=== PATIENT | male | born 1980 | race Caucasian/White ===

== ENCOUNTER 2023-09-18 19:21 | Emergency (ER) | payer BC ==
[2023-09-18 20:16] LABS: Absolute Lymphocytes (CBC) 0.6 K/uL (0.7-4.9); Hematocrit 45.7 % (39.6-49.0); Lymphocytes % 13.6 % (15.3-44.8); MCV 94.5 fL (80-100); MPV 8.9 fL (7.6-11.3); Platelets 102 thou/uL (152-406); RBC Red Blood Cell Count 4.84 M/uL (4.33-5.43)
[2023-09-18] MEDS ORDERED: PANTOPRAZOLE 40 MG INJ ONE (20:25)
[2023-09-18] MEDS ORDERED: LORazepam 2 MG/ML VIAL ONE (20:25)
[2023-09-18] MEDS ORDERED: THIAMINE 200 MG/2 ML INJ ONE (20:25)
[2023-09-18] MEDS ORDERED: ONDANSETRON 4 MG/2 ML VIAL ONE (20:25)
[2023-09-18 20:26] LABS: Protime INR 1.06
[2023-09-18] MEDS ORDERED: FAMOTIDINE 20 MG/2 ML VIAL IV ONE (20:26)
[2023-09-18] MEDS ORDERED: NA CHLORIDE 0.9% 1,000 ML ONE (20:26)
[2023-09-18] MEDS ORDERED: D5 0.9 NS 1,000 ML IV ONE (20:26)
[2023-09-18 20:38] LABS: ALT/SGPT 84 U/L (16-61); AST/SGOT 72 U/L (15-37); Alkaline Phosphatase 71 U/L (45-117); BUN Blood Urea Nitrogen 5 mg/dL (7-18); Bicarbonate 24 mEq/L (21-32); Bilirubin Direct 0.4 mg/dL (0-0.2); Bilirubin Indirect, Calculated 0.8 mg/dL (0.2-0.8); Bilirubin Total 1.2 mg/dL (0.2-1.0); Glomerular Filtration Rate 83 ml/min (=/>90); Glucose Level 119 mg/dL (74-106); Potassium 3.5 mEq/L (3.5-5.1); Protein, Total 8.5 g/dL (6.4-8.2); Sodium Level 135 mEq/L (136-145)
--- NOTE | 2023-09-18 22:39 | ER ---
Nurse's Notes [facility] Name: Lenin Ventura Age: 42 yrs Sex: Male : 1980 Arrival Date: 09/18/2023 Time: 19:21 Bed 8 Private MD: Diagnosis: Alcohol dependence with withdrawal, uncomplicated Presentation: 09/18 19:26 Chief complaint: Patient states: ETOH abuse over the last 20 years. i usually drink 1/2 lg3 of a 5th of liquor a day. stopped 2 days ago. im shaking, headache, chest pain, palpitations and vomiting. five gone through detox before but never this bad. Coronavirus screen: Client denies travel out of the [place] in the last 14 days. At this time, the client does not indicate any symptoms associated with coronavirus-19. Ebola Screen: No symptoms or risks identified at this time. Initial Sepsis Screen: Does the patient meet any 2 criteria? No. Patient's initial sepsis screen is negative. Does the patient have a suspected source of infection? No. Patient's initial sepsis screen is negative. Risk Assessment: Do you want to hurt yourself or someone else? Patient reports no desire to harm self or others. Onset of symptoms was September 16, 2023. 19:26 Method Of Arrival: Ambulatory lg3 19:26 Acuity: THAO 3 lg3 Triage Assessment: 19:29 General: Appears in no apparent distress. uncomfortable, Behavior is cooperative, lg3 anxious. Pain: Complains of pain in chest and back of head. EENT: No deficits noted. No signs and/or symptoms were reported regarding the EENT system. Neuro: Reza Agitation-Sedation Scale (RASS): +1 Restless Level of Consciousness is awake, alert, obeys commands, Oriented to person, place, time, situation. Cardiovascular: Reports chest pain, palpitations. Respiratory: No deficits noted. Airway is patent Respiratory effort is even, unlabored, Respiratory pattern is regular, symmetrical. GI: No deficits noted. Reports cramping, intolerance of fluids, intolerance of food, nausea, vomiting. : No deficits noted. No signs and/or symptoms were reported regarding the genitourinary system. Derm: No deficits noted. No signs and/or symptoms reported regarding the dermatologic system. Skin is intact, is healthy with good turgor, Skin is diaphoretic, Skin is normal, Skin temperature is warm. Musculoskeletal: No deficits noted. No signs and/or symptoms reported regarding the musculoskeletal system. Circulation, motion, and sensation intact. Range of motion: intact in all extremities. Historical: - Allergies: 19:29 No Known Allergies; lg3 - Home Meds: 19:29 None [Active]; lg3 - PMHx: 19:29 ETOH abuse; lg3 - PSHx: 19:29 None; lg3 - Immunization history:: Adult Immunizations up to date, Client reports having NOT received the Covid vaccine. Flu vaccine is not up to date. - Social history:: Smoking status: Patient reports the use of cigarette tobacco products, smokes one-half pack cigarettes per day, Patient uses alcohol, patient/guardian reports chronic longstanding heavy alcohol consumption. patient/guardian reports recent binge of alcohol consumption. - Family history:: not pertinent. Screenin:05 [facility] ED Fall Risk Assessment (Adult) History of falling in the last 3 months, km8 including since admission No falls in past 3 months (0 pts) Confusion or Disorientation No (0 pts) Intoxicated or Sedated No (0 pts) Impaired Gait No (0 pts) Mobility Assist Device Used No (0 pt) Altered Elimination No (0 pt) Score/Fall Risk Level 0 - 2 = Low Risk Oriented to surroundings, Maintained a safe environment, Educated pt \T\ family on fall prevention, incl call for assistance when getting out of bed, Assessed \T\ reinforced patient's understanding of fall precautions. Abuse screen: Denies threats or abuse. Denies injuries from another. Nutritional screening: No deficits noted. Tuberculosis screening: No symptoms or risk factors identified. 20:05 Clinical [place] Ari Withdrawal Assessment for Alcohol, revised (CIWA-Ar): km8 Nausea/Vomitin - No nausea or vomiting Headache: 0 - Not present Paroxysmal Sweats: 1 - Barely perceptible sweating, palms moist Anxiety: 4 - Moderately anxious, guarded Agitation: 0 - Normal actiivty Tremor: 4 - Moderate when client's hands extended Auditory Disturbances: 0 - Not present Visual Disturbances: 0 - Not present Tactile Disturbances: 1 - Very mild paresthesias Orientation and Clouding of Sensorium: 0 - Oriented and can do serial additions Total Score: 10 to 15: Mild Withdrawal. 21:43 Clinical [place] Ari Withdrawal Assessment for Alcohol, revised (CIWA-Ar): km8 Nausea/Vomitin - No nausea or vomiting Headache: 0 - Not present Paroxysmal Sweats: 0 - No sweats visible Anxiety: 0 - No anxiety, at ease Agitation: 0 - Normal actiivty Tremor: 1 - Not visible, but can be felt at fingertips Auditory Disturbances: 0 - Not present Visual Disturbances: 0 - Not present Tactile Disturbances: 1 - Very mild paresthesias Orientation and Clouding of Sensorium: 0 - Oriented and can do serial additions Total Score: < 10 Very mild withdrawal. Assessment: 20:05 General: Appears comfortable, Behavior is cooperative, appropriate for age, restless. km8 20:05 Pain: Denies pain. Neuro: Reza Agitation-Sedation Scale (RASS): +1 Restless Level km8 of Consciousness is awake, alert, obeys commands, Oriented to person, place, time, situation. Cardiovascular: Denies chest pain, shortness of breath, Capillary refill < 3 seconds Patient's skin is warm and dry. Respiratory: No deficits noted. Airway is patent Respiratory effort is even, unlabored, Respiratory pattern is regular, symmetrical. GI: No signs and/or symptoms were reported involving the gastrointestinal system. : No signs and/or symptoms were reported regarding the genitourinary system. EENT: No signs and/or symptoms were reported regarding the EENT system. Derm: No signs and/or symptoms reported regarding the dermatologic system. Skin is intact, is healthy with good turgor, Skin is dry, Skin is normal, Skin temperature is warm. Musculoskeletal: Range of motion: intact in all extremities. 21:43 Reassessment: Patient appears in no apparent distress at this time. Patient and/or km8 family updated on plan of care and expected duration. Pain level reassessed. Patient is alert, oriented x 3, equal unlabored respirations, skin warm/dry/pink. Patient states symptoms have improved. Vital Signs: 19:26 BP 171 / 108; Pulse 110; Resp 22 S; Temp 97.3(TE); Pulse Ox 100% on R/A; Weight 111.13 lg3 kg; Height 6 ft. 4 in. (R); 20:20 BP 138 / 108; Pulse 115; Resp 18 S; Pulse Ox 100% on R/A; km8 20:30 BP 146 / 95; Pulse 81; Resp 18 S; Pulse Ox 100% on R/A; km8 21:30 BP 156 / 98; Pulse 85; Resp 16; Pulse Ox 99% on R/A; km8 22:30 BP 148 / 91; Pulse 77; Resp 16 S; Pulse Ox 98% on R/A; km8 19:26 Body Mass Index 29.82 (111.13 kg, 193.04 cm) lg3 Wong Coma Score: 20:05 Eye Response: spontaneous(4). Motor Response: obeys commands(6). Verbal Response: km8 oriented(5). Total: 15. ED Course: 19:23 Patient arrived in ED. mr 19:29 Triage completed. lg3 19:29 Mt Garcia MD is Attending Physician. sp4 19:29 Arm band placed on right wrist. lg3 19:48 Ingrid Fay, JASON is Primary Nurse. km8 20:05 Patient has correct armband on for positive identification. Bed in low position. Call km8 light in reach. Side rails up X 1. Client placed on continuous cardiac and pulse oximetry monitoring. NIBP monitoring applied. monitor tech on. Door closed. Noise minimized. Lights dimmed. Warm blanket given. 20:05 Inserted saline lock: 20 gauge in left forearm, using aseptic technique. Blood km8 collected. Patient maintains SpO2 saturation greater than 95% on room air. 22:35 Anthony Colorado MD is Referral Physician. sp4 22:43 Urine Drug Screen Sent. km8 22:43 Urinalysis w/ reflexes Sent. km8 22:43 No provider procedures requiring assistance completed. IV discontinued, intact, km8 bleeding controlled, No redness/swelling at site. Pressure dressing applied. 22:47 Provided Education on: d/c teaching. km8 Administered Medications: 20:31 Drug: Thiamine IV 100 mg IV at bolus once Route: IV; Rate: bolus; Site: left forearm; km8 22:48 Follow up: IV Status: Completed infusion km8 20:31 Drug: Ativan IVP 2 mg IVP once Route: IVP; Site: left forearm; km8 21:44 Follow up: Response: No adverse reaction km8 21:44 Follow up: Response: Anxiety decreased km8 20:31 Drug: Famotidine IVP 20 mg IVP once; dilute with 10 mL 0.9% NaCl; give over 2 minutes km8 Route: IVP; Site: left forearm; 21:44 Follow up: Response: No adverse reaction km8 20:31 Drug: Pantoprazole IVP 40 mg IVP once Route: IVP; Site: left forearm; km8 21:44 Follow up: Response: No adverse reaction km8 20:31 Drug: D5-NS IV 1000 ml IV at 125 ml/hr continuous Route: IV; Rate: 125 ml/hr; Site: km8 left forearm; 22:47 Follow up: IV Status: Completed infusion; IV Intake: 50ml km8 20:31 Drug: Ondansetron IVP 8 mg IVP once; over 2 minutes Route: IVP; Site: left forearm; km8 21:44 Follow up: Response: No adverse reaction km8 20:32 Drug: NS 0.9% IV 1000 ml IV at 1 bolus Per protocol; 1000 mL bolus Route: IV; Rate: 1 km8 bolus; Site: left forearm; 22:48 Follow up: IV Status: Completed infusion; IV Intake: 1000ml km8 Medication: 22:47 VIS not applicable for this client. km8 Intake: 22:47 IV: 50ml; Total: 50ml. km8 22:48 IV: 1000ml; Total: 1050ml. km8 Outcome: 22:38 Discharge ordered by . sp4 22:49 Discharged to home ambulatory, km8 22:49 Condition: good 22:49 Discharge instructions given to patient, Instructed on discharge instructions, follow up and referral plans. medication usage, Demonstrated understanding of instructions, follow-up care, medications, Prescriptions given X 1, 22:50 Patient left the ED. 8 Signatures: Genesis Vega, Lewis Reg Pamela Montesinos, RN RN lg3 Mt Garcia MD MD spIngrid Durán RN RN km8 Corrections: (The following items were deleted from the chart) 19:30 19:29 Home Meds: None; lg3 lg3 22:47 22:46 Condition: good km8 km8 22:47 22:46 Discharged to home ambulatory, 8 8 22:47 22:46 Discharge instructions given to patient, Instructed on discharge instructions, 8 follow up and referral plans. 8
--- NOTE | 2023-09-18 22:39 | EDPHYS ---
Physician Documentation [facility] Name: Lenin Ventura Age: 42 yrs Sex: Male : 1980 Arrival Date: 09/18/2023 Time: 19:21 Bed 8 Private MD: ED Physician Mt Garcia HPI: 09/18 19:33 This 42 yrs old Male presents to ER via Ambulatory with complaints of Alcohol sp4 Detox. 19:33 42 year old male presents with alcohol withdrawals. . sp4 09/19 02:46 Patient states that he has discontinued alcohol use 2 days ago. Patient reports that sp4 prior to that he has been drinking heavily for the 20-day. Consuming fifth of hard liquor daily or up to 5 beers a day daily. Patient states that he has periodic alcohol binges. At this time patient has shakes, tremors, chest pain, and also he reported the vomiting. . Historical: - Allergies: 09/18 19:29 No Known Allergies; lg3 - Home Meds: 19: None [Active]; lg3 - PMHx: 19:29 ETOH abuse; lg3 - PSHx: 19:29 None; lg3 - Immunization history:: Adult Immunizations up to date, Client reports having NOT received the Covid vaccine. Flu vaccine is not up to date. - Social history:: Smoking status: Patient reports the use of cigarette tobacco products, smokes one-half pack cigarettes per day, Patient uses alcohol, patient/guardian reports chronic longstanding heavy alcohol consumption. patient/guardian reports recent binge of alcohol consumption. - Family history:: not pertinent. ROS: 09/19 02:46 Constitutional: Negative for fever, chills, and weight loss, positive for tremors sp4 positive chest pain positive vomiting positive feeling unwell overall, positive alcohol withdrawals All other systems are negative, Exam: 09/18 21:00 ECG was reviewed by the Attending Physician. 87 bpm , NSR 20:00 sp4 09/19 02:46 Constitutional: This is a well developed, well nourished patient who is awake, alert, sp4 patient is ill-appearing, tremulous, nontoxic Head/Face: Normocephalic, atraumatic. Eyes: Pupils equal round and reactive to light, extra-ocular motions intact. Lids and lashes normal. Conjunctiva and sclera are not injected. Cornea within normal limits. Periorbital areas with no swelling, redness, or edema. ENT: Nares patent. No nasal discharge, no septal abnormalities noted. Tympanic membranes are normal and external auditory canals are clear. Oropharynx with no redness, swelling, or masses, exudates, or evidence of obstruction, uvula midline. Mucous membranes moist. Neck: Trachea midline, no thyromegaly or masses palpated, and no cervical lymphadenopathy. Supple, full range of motion without nuchal rigidity, or vertebral point tenderness. Chest/axilla: Normal chest wall appearance and motion. Nontender with no deformity. No lesions are appreciated. Cardiovascular: Regular rate and rhythm with a normal S1 and S2. No gallops, murmurs, or rubs. Normal PMI, no JVD. No pulse deficits. Respiratory: Lungs have equal breath sounds bilaterally, clear to auscultation and percussion. No rales, rhonchi or wheezes noted. No increased work of breathing, no retractions or nasal flaring. Abdomen/GI: Soft, non-tender, with normal bowel sounds. No distension or tympany. No guarding or rebound. No evidence of tenderness throughout. Back: No spinal tenderness. No costovertebral tenderness. Skin: Warm, dry with normal turgor. Normal color with no rashes, no lesions, and no evidence of cellulitis. MS/ Extremity: Pulses equal, no cyanosis. Neurovascular intact. Full, normal range of motion. Neuro: Awake and alert, GCS 15, oriented to person, place, time, and situation. Cranial nerves II-XII grossly intact. Motor strength 5/5 in all extremities. Tremulous appearing male, otherwise nonfocal exam Psych: Awake, alert, with orientation to person, place and time. Behavior, mood, and affect are within normal limits Vital Signs: 09/18 19:26 BP 171 / 108; Pulse 110; Resp 22 S; Temp 97.3(TE); Pulse Ox 100% on R/A; Weight 111.13 lg3 kg; Height 6 ft. 4 in. (R); 20:20 BP 138 / 108; Pulse 115; Resp 18 S; Pulse Ox 100% on R/A; km8 20:30 BP 146 / 95; Pulse 81; Resp 18 S; Pulse Ox 100% on R/A; km8 21:30 BP 156 / 98; Pulse 85; Resp 16; Pulse Ox 99% on R/A; km8 22:30 BP 148 / 91; Pulse 77; Resp 16 S; Pulse Ox 98% on R/A; km8 19:26 Body Mass Index 29.82 (111.13 kg, 193.04 cm) lg3 Wong Coma Score: 20:05 Eye Response: spontaneous(4). Motor Response: obeys commands(6). Verbal Response: km8 oriented(5). Total: 15. MDM: 19:30 Patient medically screened. [facility] 09/19 02:46 Differential Diagnosis altered mental status, sepsis, flu. Data reviewed: vital signs, 4 nurses notes, old medical records, lab test result(s), cardiac enzymes, troponin i, CBC, electrolytes, hepatic panel, EKG. ED course: Patient's tremors have improved after lorazepam IV. Although his symptoms have improved. Patient will be discharged home with Librium taper. Advised for the patient to attend the rehab and also to join alcoholic Anonymous groups. . 09/18 19:30 Order name: Acetaminophen; Complete Time: 20:57 [facility] 09/18 19:30 Order name: Basic Metabolic Panel; Complete Time: 20:57 [facility] 09/18 19:30 Order name: CBC with Diff; Complete Time: 20:57 [facility] 09/18 19:30 Order name: ETOH Level; Complete Time: 20:57 [facility] 09/18 19:30 Order name: Hepatic Function; Complete Time: 20:57 [facility] 09/18 19:30 Order name: PT-INR; Complete Time: 20:57 [facility] 09/18 19:30 Order name: Ptt, Activated; Complete Time: 20:57 [facility] 09/18 19:30 Order name: Salicylate; Complete Time: 20:57 [facility] 09/18 19:30 Order name: Urinalysis w/ reflexes [facility] 09/18 19:30 Order name: Urine Drug Screen [facility] 09/18 21:06 Order name: Troponin High Sensitivity; Complete Time: 22:34 [facility] 09/18 19:30 Order name: EKG; Complete Time: 19:31 [facility] 09/18 19:30 Order name: EKG - Nurse/Tech; Complete Time: 20:08 [facility] 09/18 19:30 Order name: IV Saline Lock; Complete Time: 20:08 sp4 09/18 19:30 Order name: Labs collected and sent; Complete Time: 20:08 sp4 09/18 19:30 Order name: Suicide Screening (Nanci); Complete Time: 20:32 sp4 EC/29 21:00 Rate is 87 beats/min. Rhythm is regular, Normal Sinus Rhythm. QRS [place] is Normal. [place] sp4 interval is normal. QRS interval is normal. QT interval is normal. T waves are Normal. No ST changes noted. Clinical impression: Normal ECG. Interpreted by me. Reviewed by me. Administered Medications: 20:31 Drug: Thiamine IV 100 mg IV at bolus once Route: IV; Rate: bolus; Site: left forearm; km8 22:48 Follow up: IV Status: Completed infusion 20:31 Drug: Ativan IVP 2 mg IVP once Route: IVP; Site: left forearm; km8 21:44 Follow up: Response: No adverse reaction 8 21:44 Follow up: Response: Anxiety decreased 20:31 Drug: Famotidine IVP 20 mg IVP once; dilute with 10 mL 0.9% NaCl; give over 2 minutes km8 Route: IVP; Site: left forearm; 21:44 Follow up: Response: No adverse reaction 20:31 Drug: Pantoprazole IVP 40 mg IVP once Route: IVP; Site: left forearm; km8 21:44 Follow up: Response: No adverse reaction 20:31 Drug: D5-NS IV 1000 ml IV at 125 ml/hr continuous Route: IV; Rate: 125 ml/hr; Site: [facility] left forearm; 22:47 Follow up: IV Status: Completed infusion; IV Intake: 50ml 20:31 Drug: Ondansetron IVP 8 mg IVP once; over 2 minutes Route: IVP; Site: left forearm; km8 21:44 Follow up: Response: No adverse reaction 20:32 Drug: NS 0.9% IV 1000 ml IV at 1 bolus Per protocol; 1000 mL bolus Route: IV; Rate: 1 km8 bolus; Site: left forearm; 22:48 Follow up: IV Status: Completed infusion; IV Intake: 1000ml km8 Disposition Summary: 09/18/23 22:38 Discharge Ordered Notes: Location: Home sp4 Problem: new sp4 Symptoms: have improved sp4 Condition: Stable sp4 Diagnosis - Alcohol dependence with withdrawal, uncomplicated sp4 Followup: sp4 - With: Anthony Colorado MD - When: 7 - 10 days - Reason: Recheck today's complaints Discharge Instructions: - Discharge Summary Sheet sp4 - Alcohol Withdrawal Syndrome sp4 Forms: - Patient Portal Instructions sp4 Prescriptions: - chlordiazepoxide HCl 25 mg Oral capsule - take 1 capsule ORAL route every 12 hours for 10 days Take one tab every 12 sp4 hours for 5 days and then take one tab daily for 5 days.; 15 capsule; Refills: 0, Product Selection Permitted Signatures: Dispatcher [employer] EDMS Pamela Christianson RN RN lg3 Mt Garcia MD MD sp4 Ingrid aFy RN RN km8 Corrections: (The following items were deleted from the chart) 19:30 19:29 Home Meds: None; lg3 lg3
[2023-09-18 22:55] VITALS: TEMP 97.3
[2023-09-18 23:01] VITALS: BP 148/91; O2SAT 98
[2023-09-18 23:05] LABS: Specific Gravity 1.009 (1.005-1.030); Urine Bacteria None Seen /HPF (<20); Urine Bilirubin NEGATIVE (Negative); Urine Blood Negative (Negative); Urine Clarity Clear (Clear); Urine Color Light-Yellow (Yellow); Urine Glucose NEGATIVE (Negative); Urine Protein TRACE (Negative); Urine RBC <5 /HPF (None Seen); Urine Urobilinogen Normal (Normal)
[2023-09-18 23:30] LABS: Barbiturates NEGATIVE (NEGATIVE); Benzodiazepines NEGATIVE (NEGATIVE); Cocaine NEGATIVE (NEGATIVE); METHAMPHETAM NEGATIVE (NEGATIVE); Opiates NEGATIVE (NEGATIVE); Phencyclidine NEGATIVE (NEGATIVE); THC Cannibis NEGATIVE (NEGATIVE)
[2023-09-18 23:31] LABS: Methadone ND (NEGATIVE)
--- NOTE | 2023-09-20 07:53 | EKG ---
Test Date: 2023-09-18 Test Time: 20:00:37 Pbx Mechanic: DOMINGO MEASUREMENT RESULTS: Intervals: Rate: 87 WV: 166 QRSD: 82 QT: 350 QTc: 421 [place]: P: 70 WV: 166 QRS: 60 T: 64 INTERPRETIVE STATEMENTS: Normal sinus rhythm Normal ECG No previous ECG available for comparison Electronically Signed On 09-20-23 07:51:06 CDT by Mario Paul
== END 2023-09-18 22:50 | disposition home or self-care (01) ==
LOC: ER 19:21
DX: F10.239 Alcohol dependence with withdrawal, unspecified (principal); F17.210 Nicotine dependence, cigarettes, uncomplicated
CPT/HCPCS: 96365; 96368; 93005; 85025; 81001; 80048; 36415; 85610; 80076; 85730; 84484; 80307; 96375; 99285; 96366; 80143; 80179; 82077; J3411; C9113; J2405; J7042; J7030

== ENCOUNTER → 2023-12-22 | Emergency (ER) | payer BC ==
[~2023-12-22] MED LIST: NA CHLORIDE 0.9% 1,000 ML ONE; POTASSIUM CL SA 10 MEQ TAB PO ONE
[2023-12-22 13:19] LABS: Absolute Lymphocytes (CBC) 0.8 K/uL (0.7-4.9); Hematocrit 43.8 % (39.6-49.0); Lymphocytes % 24.9 % (15.3-44.8); MCV 95.9 fL (80-100); MPV 8.6 fL (7.6-11.3); Platelets 57 thou/uL (152-406); RBC Red Blood Cell Count 4.57 M/uL (4.33-5.43)
[2023-12-22 13:33] LABS: Potassium 3.2 mEq/L (3.5-5.1)
[2023-12-22 14:03] LABS: White Blood Cell Scan OK (OK)
[2023-12-22 14:04] LABS: Blood Morphology Comment NOT SEEN (NOT SEEN); Platelet Estimate DECR
--- NOTE | 2023-12-22 14:32 | RAD REPORT ---
EXAM DESCRIPTION: RAD - Chest Pa And Lat (2 Views) - 12/22/2023 1:17 pm CLINICAL HISTORY: COUGH COMPARISON: <Comparisons> TECHNIQUE: PA and lateral views of the chest were obtained. FINDINGS: The lungs are clear. Heart size is normal and central vasculature is within normal limits. No pleural effusion or pneumothorax seen. No acute bony finding noted. IMPRESSION: No acute cardiopulmonary process.
--- NOTE | 2023-12-22 14:34 | ER ---
Nurse's Notes [facility] Name: Lenin Ventura Age: 43 yrs Sex: Male : 1980 Arrival Date: 12/22/2023 Time: 12:06 Bed 11 Private MD: Diagnosis: Myalgia;Hypokalemia Presentation: 12/22 12:18 Chief complaint: Patient states: "I've been to urgent care 3 times in the last 2 weeks. as6 It started out as the flu, then an upper respiratory infection, then pneumonia. I've also been drinking vodka and beer to self medicate and I'm not getting better. I probably need some fluids and Ativan. I think I'm dehydrated too." pt reports last drink was 6 hours ago. pt also reports not getting his antibiotic prescription filled for his pneumonia. Coronavirus screen: At this time, the client does not indicate any symptoms associated with coronavirus-19. Ebola Screen: No symptoms or risks identified at this time. Initial Sepsis Screen: Does the patient meet any 2 criteria? No. Patient's initial sepsis screen is negative. Does the patient have a suspected source of infection? No. Patient's initial sepsis screen is negative. Risk Assessment: Do you want to hurt yourself or someone else? Patient reports no desire to harm self or others. Onset of symptoms was December 22, 2023. 12:18 Acuity: THAO 3 as6 12:18 Method Of Arrival: Ambulatory as6 Historical: - Allergies: 12:18 No Known Allergies; as6 - PMHx: 12:18 etoh abuse; as6 - PSHx: 12:18 finger; as6 - Immunization history:: Adult Immunizations not up to date. - Social history:: Smoking status: Patient reports the use of cigarette tobacco products, smokes one pack cigarettes per day. Patient uses alcohol. Screenin:22 [facility] ED Fall Risk Assessment (Adult) Score/Fall Risk Level 0 - 2 = Low Risk. Abuse as6 screen: Denies threats or abuse. Denies injuries from another. Nutritional screening: No deficits noted. Tuberculosis screening: No symptoms or risk factors identified. Assessment: 12:22 General: Appears in no apparent distress. ill, Behavior is calm, cooperative. Pain: as6 Complains of pain in generalized Quality of pain is described as aching. Neuro: Level of Consciousness is awake, alert, obeys commands, Oriented to person, place, time, situation. Cardiovascular: Capillary refill < 3 seconds Patient's skin is warm and dry. Respiratory: Reports cough that is Respiratory effort is even, unlabored, Respiratory pattern is regular, symmetrical. GI: No deficits noted. No signs and/or symptoms were reported involving the gastrointestinal system. : No deficits noted. No signs and/or symptoms were reported regarding the genitourinary system. EENT: Reports nasal congestion. Derm: Skin is intact. Musculoskeletal: Circulation, motion, and sensation intact. 13:20 Reassessment: Patient and/or family updated on plan of care and expected duration. Pain rs5 level reassessed. Patient is alert, oriented x 3, equal unlabored respirations, skin warm/dry/pink. Patient denies pain at this time. Patient states feeling better. Patient states symptoms have improved. 14:46 Reassessment: No changes from previously documented assessment. rs5 Vital Signs: 12:18 BP 163 / 117; Pulse 89; Resp 18 S; Temp 98.1(O); Pulse Ox 97% on R/A; Weight 104.33 kg as6 (R); Height 6 ft. 4 in. (R); Pain 6/10; 13:05 BP 130 / 85; Pulse 80; Resp 18; Pulse Ox 99% on R/A; rs5 14:32 BP 125 / 87; Pulse 86; Resp 18 S; Pulse Ox 96% on R/A; as6 12:18 Body Mass Index 28.00 (104.33 kg, 193.04 cm) as6 12:18 Pain Scale: Adult as6 ED Course: 12:06 Patient arrived in ED. rg4 12:18 Arm band placed on. as6 12:22 Triage completed. as6 12:22 Bed in low position. Call light in reach. Side rails up X 1. as6 12:24 Jeff Grier DO is Attending Physician. ms3 13:08 Inserted saline lock: 20 gauge in right antecubital area, using aseptic technique. as6 Blood collected. 13:16 Chest Pa And Lat (2 Views) XRAY In Process Unspecified. EDMS 14:33 Steve Montelongo DO is Referral Physician. ms3 14:47 No provider procedures requiring assistance completed. IV discontinued, intact, rs5 bleeding controlled, No redness/swelling at site. Pressure dressing applied. Administered Medications: 13:08 Drug: NS 0.9% IV 1000 ml IV at 1 bolus Per protocol; 1000 mL bolus Route: IV; Rate: 1 as6 bolus; Site: right antecubital; 14:00 Follow up: Response: No adverse reaction rs5 14:31 Not Given (Hemodynamic Parameters): clonidine0.1 mg PO once as6 14:32 Drug: Potassium Chloride PO 40 mEq PO once Route: PO; as6 14:48 Follow up: Response: No adverse reaction rs5 Medication: 12:23 VIS not applicable for this client. as6 Outcome: 14:34 Discharge ordered by MD. ms3 14:47 Discharged to home ambulatory, rs5 14:47 Condition: stable 14:47 Discharge instructions given to patient, Instructed on discharge instructions, follow up and referral plans. Demonstrated understanding of instructions, follow-up care, 14:48 Patient left the ED. rs5 Signatures: Dispatcher [employer] EDMS Sadaf Serrano rg4 Jeff Grier DO DO ms3 Talha Arriaga, RN RN as6 Roly Lion, RN RN rs5
--- NOTE | 2023-12-22 14:34 | EDPHYS ---
Physician Documentation [facility] Name: Lenin Ventura Age: 43 yrs Sex: Male : 1980 Arrival Date: 12/22/2023 Time: 12:06 Bed 11 Private MD: ED Physician Jeff Grier HPI: 12/22 12:47 This 43 yrs old Male presents to ER via Ambulatory with complaints of Flu Symptoms. ms3 12:47 43-year-old male with past medical history of alcohol abuse presents to the emergency ar3 department for "everything hurts." Patient states he has been to urgent care 3 times over the last 2 weeks. Patient was originally diagnosed with flu, then a URI, then pneumonia. Patient states he has been drinking to self medicate and feels as if he needs fluids. Patient states he did not fill his prescriptions after being diagnosed with pneumonia. Historical: - Allergies: 12:18 No Known Allergies; as6 - PMHx: 12:18 etoh abuse; as6 - PSHx: 12:18 finger; as6 - Immunization history:: Adult Immunizations not up to date. - Social history:: Smoking status: Patient reports the use of cigarette tobacco products, smokes one pack cigarettes per day. Patient uses alcohol. ROS: 12:47 Cardiovascular: Negative for chest pain, and palpitations. Abdomen/GI: Negative for ms3 abdominal pain, nausea, vomiting, diarrhea, and constipation, Skin: Negative for injury, rash, and discoloration, 12:47 Constitutional: Positive for body aches, 12:47 Respiratory: Positive for cough, 12:47 All other systems are negative, Exam: 12:47 Constitutional: This is a well developed, well nourished patient who is awake, alert, ms3 and in no acute distress. Head/Face: Normocephalic, atraumatic. Chest/axilla: Normal chest wall appearance and motion. Nontender with no deformity. Cardiovascular: Regular rate and rhythm with a normal S1 and S2. No gallops, murmurs, or rubs. Normal PMI, no JVD. No pulse deficits. Respiratory: Lungs have equal breath sounds bilaterally, clear to auscultation and percussion. No rales, rhonchi or wheezes noted. No increased work of breathing, no retractions or nasal flaring. Abdomen/GI: Soft, non-tender, with normal bowel sounds. No distension or tympany. No guarding or rebound. No evidence of tenderness throughout. Skin: Warm, dry with normal turgor. Normal color with no rashes, no lesions, and no evidence of cellulitis. MS/ Extremity: Pulses equal, no cyanosis. Neurovascular intact. Full, normal range of motion. Vital Signs: 12:18 BP 163 / 117; Pulse 89; Resp 18 S; Temp 98.1(O); Pulse Ox 97% on R/A; Weight 104.33 kg as6 (R); Height 6 ft. 4 in. (R); Pain 6/10; 13:05 BP 130 / 85; Pulse 80; Resp 18; Pulse Ox 99% on R/A; rs5 14:32 BP 125 / 87; Pulse 86; Resp 18 S; Pulse Ox 96% on R/A; as6 12:18 Body Mass Index 28.00 (104.33 kg, 193.04 cm) as6 12:18 Pain Scale: Adult as6 MDM: 12:47 Differential Diagnosis: Influenza Upper Respiratory Infection Viral Syndrome Pneumonia ms3 Other Dehydration. 13:03 Patient medically screened. ms3 14:42 Data reviewed: vital signs, nurses notes, and as a result, I will discharge patient. I ms3 considered the following discharge prescriptions or medication management in the emergency department Medications were administered in the Emergency Department. See MAR. Independent interpretation of the following test(s) in the Emergency Department X-Ray: My interpretation is Chest x-ray images reviewed by me do not reveal pneumonia. Counseling: I had a detailed discussion with the patient and/or guardian regarding the historical points, exam findings, and any diagnostic results supporting the discharge/admit diagnosis, lab results, radiology results, the need for outpatient follow up, to return to the emergency department if symptoms worsen or persist or if there are any questions or concerns that arise at home. Response to treatment: the patient's symptoms have mildly improved after treatment, and as a result, I will discharge patient. Special discussion: I discussed with the patient/guardian in detail that at this point there is no indication for admission to the hospital. It is understood, however, that if the symptoms persist or worsen the patient needs to return immediately for re-evaluation. ED course: Discussed labs, chest x-ray with patient. Patient to follow-up with primary care physician 2 to 3 days. Patient understands and agrees with plan. All questions were answered. Return precautions discussed include worsening symptoms, or any other concerns.. 12/22 12:47 Order name: CBC with Diff; Complete Time: 14:21 ms3 12/22 12:47 Order name: BMP; Complete Time: 14:21 ms3 12/22 14:04 Order name: CBC Smear Scan; Complete Time: 14:21 EDMS 12/22 12:47 Order name: Chest Pa And Lat (2 Views) XRAY; Complete Time: 14:33 ms3 Administered Medications: 13:08 Drug: NS 0.9% IV 1000 ml IV at 1 bolus Per protocol; 1000 mL bolus Route: IV; Rate: 1 as6 bolus; Site: right antecubital; 14:00 Follow up: Response: No adverse reaction rs5 14:31 Not Given (Hemodynamic Parameters): clonidine0.1 mg PO once as6 14:32 Drug: Potassium Chloride PO 40 mEq PO once Route: PO; as6 14:48 Follow up: Response: No adverse reaction rs5 Disposition Summary: 12/22/23 14:34 Discharge Ordered Notes: Location: Home ms3 Condition: Stable ms3 Diagnosis - Myalgia ms3 - Hypokalemia ms3 Followup: ms3 - With: Steve Montelongo DO - When: 2 - 3 days - Reason: Recheck today's complaints Discharge Instructions: - Discharge Summary Sheet ms3 - Musculoskeletal Pain ms3 - Hypokalemia ms3 Forms: - Medication Reconciliation Form ms3 - Thank You Letter ms3 - Antibiotic Education ms3 - Prescription Opioid Use ms3 - Patient Portal Instructions ms3 - Leadership Thank You Letter ms3 Signatures: Dispatcher [employer] EDJeff Allan DO DO ms3 Talha Arriaga RN RN as6 Roly Lion RN rs5 Corrections: (The following items were deleted from the chart) 14:44 14:22 cloNIDine PO 0.1 mg PO once ordered. ms3 ms3
[2023-12-22 15:40] VITALS: BP 125/87; O2SAT 96
== END ==
LOC: ER 12:06
DX: M79.10 Myalgia, unspecified site (principal); E87.6 Hypokalemia; R05.9 Cough, unspecified; F17.210 Nicotine dependence, cigarettes, uncomplicated
CPT/HCPCS: 85025; 80048; 36415; 71046; J7030